=== PATIENT | female | born 1970 | race Two or more races ===

== ENCOUNTER 2024-06-09 17:17 | Emergency (ER) | payer OTHER ==
[~2024-06-09] VITALS: Ht 172.7 cm; Wt 97.7 kg
[2024-06-09 17:37] VITALS: BP 140/72; TEMP 97.8; O2SAT 96
[2024-06-09] MEDS ORDERED: CEPH500C2 PO (19:58)
== END 2024-06-09 21:03 | disposition home or self-care (01) ==
LOC: ER 17:29
DX: R79.89 Other specified abnormal findings of blood chemistry (principal); Z88.8 Allergy status to other drugs, medicaments and biological substances
CPT/HCPCS: 71045-TC